=== PATIENT | male | born 1960 | race Two or more races ===

== ENCOUNTER 2024-01-19 15:04 | Outpatient (REF) | payer MEDICARE, SELFPAY ==
[2024-01-22 08:14] LABS: TS Negative Control Passed; TS Panel A 5; TS Panel B 1; TS Positive Control Passed; TSpotTB Borderline (Negative)
== END 2024-01-19 15:05 | disposition home or self-care (01) ==
LOC: HO.LAB 15:04
PROVIDERS: Visit Provider Internal Medicine
DX: Z02.89 Encounter for other administrative examinations (principal)
CPT/HCPCS: 36415; 86481